=== PATIENT | female | born 1980 | race Caucasian/White ===

== ENCOUNTER → 2025-05-25 08:41 | Outpatient (CLI) | payer OTHER, SELFPAY ==
--- NOTE | 2025-05-25 08:43 | DI.MRI.S_ITS ---
PROCEDURE: MR CERVICAL SPINE WO CON INDICATIONS: Cervical radiculopathy TECHNIQUE: Noncontrast sagittal T1 spin echo and T2 fast spin echo, sagittal STIR, foraminal oblique sagittal T2 fast spin echo, and axial gradient echo or T2 fast spin echo through the cervical spine. COMPARISON: Outside Facility, CR, XR CERVICAL SPINE 2V OR 3V, 07/20/2023, 11:44. FINDINGS: Image quality: Excellent. Alignment and Curvature: Straightening of the normal cervical lordosis. Bone Marrow: Marrow demonstrates normal overall signal. Spinal Cord: Visualized spinal cord has normal size and signal. No cerebellar tonsillar herniation. Paraspinous Soft Tissues: No paravertebral masses. Prevertebral soft tissues are normal in thickness. C2-C3: Normal appearance. C3-C4: Normal appearance. C4-C5: Normal appearance. C5-C6: Normal appearance. C6-C7: Normal appearance. C7-T1: Normal appearance. IMPRESSION: No significant degenerative changes. No central canal or neural foraminal stenosis. Approved by: Tim Quintanilla M.D. on 05/25/2025 at 11:23
== END ==
LOC: MRI 08:42
PROVIDERS: PCP Family Medicine; Referring Provider Family Medicine; Visit Provider Physical Medicine & Rehabilitation
DX: M54.12 Radiculopathy, cervical region (principal); G56.13 Other lesions of median nerve, bilateral upper limbs
CPT/HCPCS: 72141